=== PATIENT | male | born 1970 | race Caucasian/White ===

== ENCOUNTER 2017-02-20 09:26 | Emergency (ER) | payer OTHER ==
[~2017-02-20] VITALS: Ht 177.8 cm; Wt 93.5 kg
[2017-02-20 09:30] VITALS: Ht 177.8 cm; Wt 93.5 kg
[2017-02-20] MEDS ORDERED: CEPH-443 PO (09:55)
[2017-02-20] MEDS ORDERED: SULF1TAB31 PO (09:55)
[2017-02-20] MEDS ORDERED: CEPHALEXIN 500 MG CAP PO ONE (10:00)
[2017-02-20] MEDS ORDERED: TRIMETHOPRIM/SULFAMETHOX (DS) TAB PO ONE (10:00)
--- NOTE | 2017-02-20 10:01 | ERD ---
ER Documentation Chief Complaint Date/Time DATE: 02/20/17 TIME: 09:58 Chief Complaint redness swelling hot to touch at right elbow for 3 days HPI 46-year-old male presents to the emergency department complaining of right elbow swelling and pain. Patient was in his usual state of health into the last 24 hours at which time he developed an atraumatic swelling and pain of his right elbow. He reports no numbness, tingling, loss of function of the arm. He reports no fevers or chills. ROS All systems reviewed and are negative except as per history of present illness. Medications Home Meds Active Scripts Cephalexin* (Keflex*) 500 Mg Capsule, 500 MG PO QID for 5 Days, CAP Prov:SYDNEE ROJOSON 02/20/17 Sulfamethoxazole/Trimethoprim* (Bactrim Ds* Tablet) 1 Each Tablet, 1 TAB PO BID , #14 TAB Prov:ALIALZU 02/20/17 Allergies Allergies: Coded Allergies: No Known Allergy (Unverified , 02/20/17) PMhx/Soc History of Surgery: Yes (right arm) Anesthesia Reaction: No Hx Neurological Disorder: No Hx Respiratory Disorders: No Hx Cardiac Disorders: No Hx Psychiatric Problems: No Hx Alcohol Use: No Hx Substance Use: No Hx Tobacco Use: No Smoking Status: Never smoker FmHx Noncontributory for chief complaint Physical Exam Vitals Vital Signs Date Time Temp Pulse Resp B/P Pulse Ox O2 Delivery O2 Flow Rate FiO2 02/20/17 09:30 99.5 95 18 130/84 99 Physical Exam General: well developed, well nourished, in no distress. Neuro: Normal speech, gait, balance Extremity: The right elbow, which is the area of concern, has evidence of an old skin graft. There is cellulitis without abscess noted. There is no olecranon bursitis noted. There is no crepitus and the compartments are soft and compressible. Patient is neurovascularly intact distal to the infection. Results 24 hrs Current Medications Medications (Trade) Dose Ordered Sig/Elina Route PRN Reason Start Time Stop Time Status Last Admin Dose Admin Trimethoprim/ Sulfamethoxazole (Bactrim (Ds)) 1 tab ONCE ONCE PO 02/20/17 10:00 02/20/17 10:01 Cephalexin (Keflex) 500 mg ONCE ONCE PO 02/20/17 10:00 02/20/17 10:01 Procedures/MDM Patient was taken to a room, seen and examined Medical decision making: This is a 46-year-old male nondiabetic gentleman who presents the emergency department the cellulitis of a previously damaged right elbow with a skin graft. At this time, patient has no systemic symptoms or evidence of significant high risk infection although given the skin graft, wound complications and healing delay may be anticipated. Patient will be started on antibiotics for coverage of cellulitis and patient has been given clear instructions to return tomorrow for recheck at which time he may need IV antibiotics if he is not improving. Clearly at this time, patient has no evidence of abscess or surgical need for intervention. Departure Diagnosis: Primary Impression: Cellulitis Condition: Stable Patient Instructions: Cellulitis Additional Instructions: Please return here tomorrow for recheck. Return sooner for any fevers LUZ ROJO Feb 20, 2017 10:01
[2017-02-20] MEDS ORDERED: HYDR-906 PO (10:08)
[2017-02-20] MEDS ORDERED: HYDROCODONE/APAP (5/325) TAB PO ONE (10:30)
[2017-02-20 10:46] VITALS: BP 129/78; PULSE 90; RESP 20
== END 2017-02-20 10:47 | disposition home or self-care (01) ==
LOC: E/R 09:26
DX: L03.113 Cellulitis of right upper limb (principal); R40.2252 Coma scale, best verbal response, oriented, at arrival to emergency department
CPT/HCPCS: Z7502; Z7610; 99284

== ENCOUNTER 2017-02-21 08:27 | Inpatient (IN) | payer OTHER ==
[~2017-02-21] VITALS: Ht 170.2 cm; Wt 92.5 kg
[~2017-02-21 08:27] MED LIST: CEPH-443 PO; HYDR-906 PO; SULF1TAB31 PO
[2017-02-21] MEDS ORDERED: ONDANSETRON 4 MG INJ IV STA (09:22)
[2017-02-21] MEDS ORDERED: PIPER-TAZO 3.375 GM IV (PMX) 100 ML IVPB STA (09:22)
[2017-02-21] MEDS ORDERED: morphine 2 MG INJ IV STA (09:22)
[2017-02-21] MEDS ORDERED: SOD CHLORIDE 0.9% 1,000 ML IV STA (09:22)
[2017-02-21] MEDS ORDERED: VANCOMYCIN 1 GM (PMX) 250 ML IVPB STA (09:22)
--- NOTE | 2017-02-21 09:54 | ERD ---
ER Documentation Chief Complaint Date/Time DATE: 02/21/17 TIME: 09:51 Chief Complaint RIGHT ARM SWELLING, SEEN HERE YESTERDAY WITH SAME HPI 46 year old male comes in with right arm swelling, Patient was discharged with Keflex and Bactrim after being seen a diagnosis cellulitis yesterday. 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 Since then he states that the swelling has gotten worse, with more pain. He has not had any fevers or chills. ROS All systems reviewed and are negative except as per history of present illness. Medications Home Meds Discontinued Scripts Hydrocodone/Acetaminophen ([place] 5-325 Tablet) 1 Each Tablet, 1 TAB PO Q6H Y for PAIN, #7 TAB Prov:LUZ ROJO 02/20/17 Cephalexin* (Keflex*) 500 Mg Capsule, 500 MG PO QID for 5 Days, CAP Prov:ALIALUZ 02/20/17 Sulfamethoxazole/Trimethoprim* (Bactrim Ds* Tablet) 1 Each Tablet, 1 TAB PO BID , #14 TAB Prov:LUZ ROJO 02/20/17 Allergies Allergies: Coded Allergies: No Known Allergy (Unverified , 02/20/17) PMhx/Soc Medical and Surgical Hx: pt denies Medical Hx History of Surgery: Yes (right arm) Anesthesia Reaction: No Hx Neurological Disorder: No Hx Respiratory Disorders: No Hx Cardiac Disorders: No Hx Psychiatric Problems: No Hx Alcohol Use: No Hx Substance Use: No Hx Tobacco Use: No Physical Exam Vitals Vital Signs Date Time Temp Pulse Resp B/P Pulse Ox O2 Delivery O2 Flow Rate FiO2 02/21/17 08:29 99.7 90 17 114/69 100 Physical Exam General: Well-developed, well-nourished. The patient appears in no acute distress. HEENT: Head is normocephalic, atraumatic. No scleral icterus. Neck: Supple. Nontender. Lungs: Clear to auscultation. Normal air movement. Heart: Regular rate and rhythm. S1 and S2 are normal. No murmurs, gallops, or rubs. Abdomen: Soft, nontender, nondistended. Bowel sounds are normoactive. Extremities: Cellulitis of the right elbow and proximal arm, there is erythema, swelling there is an abscess to the posterior right elbow. Sensation is distally intact, capillary refill less than 2 seconds. No lymphatic streaking. Neurologic: Alert and oriented 3. No focal deficits. Skin: Normal turgor. No rash or lesions. Result Diagram: 02/22/17 0530 02/22/17 0530 Results 24 hrs Laboratory Tests Test 02/21/17 09:46 White Blood Count 10.510^3/ul Red Blood Count 4.6210^6/ul Hemoglobin 14.0g/dl Hematocrit 39.7% Mean Corpuscular Volume 85.9fl Mean Corpuscular Hemoglobin 30.3pg Mean Corpuscular Hemoglobin Concent 35.3g/dl Red Cell Distribution Width 12.2% Platelet Count 37555^3/UL Mean Platelet Volume 10.7fl Neutrophils % 73.8% Lymphocytes % 15.7% Monocytes % 9.3% Eosinophils % 0.3% Basophils % 0.3% Nucleated Red Blood Cells % 0.0/100WBC Neutrophils # (Manual) 7.810^3/ul Lymphocytes # 1.710^3/ul Monocytes # 1.010^3/ul Eosinophils # 0.010^3/ul Basophils # 0.010^3/ul Nucleated Red Blood Cells # 0.010^3/ul Sodium Level 138mmol/L Potassium Level 3.7mmol/L Chloride Level 105mmol/L Carbon Dioxide Level 22mmol/L Anion Gap 15 Blood Urea Nitrogen 14mg/dl Creatinine 1.00mg/dl Glucose Level 119mg/dl Calcium Level 9.7mg/dl Current Medications Medications (Trade) Dose Ordered Sig/Elina Route PRN Reason Start Time Stop Time Status Last Admin Dose Admin Sodium Chloride (NS) 1,000 ml @ 1,000 mls/hr Q1H STAT IV 02/21/17 09:22 02/21/17 10:21 DC 02/21/17 10:07 Morphine Sulfate (morphine) 2 mg ONCE STAT IV 02/21/17 09:22 02/21/17 09:24 DC Ondansetron HCl 4 mg 4 mg ONCE STAT IV 02/21/17 09:22 02/21/17 09:24 DC Piperacillin Sod/ Tazobactam Sod 100 ml @ 200 mls/hr ONCE STAT IVPB 02/21/17 09:22 02/21/17 09:51 DC 02/21/17 10:07 Vancomycin HCl (Vancocin) 250 ml @ 125 mls/hr ONCE STAT IVPB 02/21/17 09:22 02/21/17 11:21 DC 02/21/17 09:22 Procedures/MDM 38-year-old male comes in with cellulitis, there is an abscess as well and likely due to an abrasion injury with the trash can at the hospital 4 days ago. Patient states that he was taking the antibiotics however does not seem to have any improvement, patient will be admitted for IV antibiotics as his cellulitis has worsened as well as the swelling and pain. The case was reviewed and discussed with Dr. Lau who agrees with the plan of care including labs, treatment, and advanced imaging as appropriate. Departure Diagnosis: Primary Impression: Cellulitis of right arm Condition: Stable ROMINA LAZARO PA-C Feb 21, 2017 09:54
[2017-02-21] MEDS ORDERED: IBUPROFEN 600 MG TAB PO ONE (10:00)
[2017-02-21 10:06] LABS: WHITE BLOOD COUNT 10.5 10^3/ul (4.8-10.8)
[2017-02-21 10:07] LABS: BASOPHILS % 0.3 % (0.0-2.0); EOSINOPHILS % 0.3 % (0.0-7.0); HEMATOCRIT 39.7 % (42.0-52.0); LYMPHOCYTES # 1.7 10^3/ul (0.8-2.9); LYMPHOCYTES % 15.7 % (15.0-51.0); MEAN CORPUSCULAR HEMOGLOBIN 30.3 pg (29.0-33.0); MEAN CORPUSCULAR HGB CONC 35.3 g/dl (32.0-37.0); MEAN CORPUSCULAR VOLUME 85.9 fl (82.0-101.0); MEAN PLATELET VOLUME 10.7 fl (7.4-10.4); MONOCYTES % 9.3 % (0.0-11.0); NEUTROPHILS % 73.8 % (39.0-77.0); PLATELET COUNT 183 10^3/UL (140-415); RED BLOOD COUNT 4.62 10^6/ul (4.70-6.10); RED CELL DISTRIBUTION WIDTH 12.2 % (11.5-14.5)
[2017-02-21 10:24] LABS: CALCIUM 9.7 mg/dl (8.4-10.2); POTASSIUM 3.7 mmol/L (3.5-5.1)
--- NOTE | 2017-02-21 11:03 | RADRPT ---
PROCEDURE: CR Right Elbow CLINICAL INDICATION: Cellulitis with recent trauma TECHNIQUE: 4 views were submitted. COMPARISON: None FINDINGS: Osseous Structures: There is mild deformity to the distal ulnar shaft is seen at the edge of the oumar dy which may be a sequelae of old healed trauma. There is deformity to the lateral capitellum with a small metallic ring in place indicating previous surgery. There is mild solid benign-appearing prince osteal reaction seen along the lateral distal right humeral metaphysis. No acute fracture or osseous destruction is evident. Joint Spaces: The joint spaces are well maintained. No joint effusion is evident. Soft Tissues: There is a faint calcification seen anterior to the base of the right radial head. The re is soft tissue prominence and lobulation dorsal to the ulnar shaft. IMPRESSION: 1. Previous elbow surgery with a metallic ring seen lateral to a and slightly deformed capitellum. 2. Deformity to the distal ulnar shaft seen at the edge of the study possibly a sequelae of old hea led trauma. 3. Benign solid periosteal reaction seen along the lateral distal humeral metaphysis. 4. No acute fracture or osseous destruction is evident. 5. Lobulated increased soft tissue density seen dorsal to the ulnar shaft. Physician Raiza Date Time Electronically viewed and signed by Physician Raiza on 02/21/2017 11:03 /
--- NOTE | 2017-02-21 11:24 | HP ---
Date/Time of Note Date/Time of Note DATE: 02/21/17 TIME: 11:18 Assessment/Plan VTE Prophylaxis VTE Prophylaxis Intervention: SCD's Assessment/Plan Assessment/Plan 46 yo M with no chronic medical conditions here for R extensor elbow wound, concern for cellulitis with possible underlying abscess? -SSTI abx: ancef/vanc -gen surg consult placed for eval for debridement general diet DVT prophx HPI/ROS Admit Date/Time Admit Date/Time Hx of Present Illness CC R elbow wound HPI 46 yo M with pmhx skin grafts to RUE for old injury presents with R arm wound. 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 States the area grew red over the past few days. Presented to the ER here yesterday, was diagnosed with cellulitis and discharged with Rx's for keflex and bactrim. This morning when he awoke the area of inflammation had increased in size and induration and was draining blood and pus which prompted his return the [facility] ER. Denies fevers or chills. 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 Sanguinous discharge with debris easily expressible from this this wound +strong radial pulse. full AROM in RUE XR results reviewed WBCs and Cr wnl Labs Result Diagram: 02/21/1746 02/21/1746 MONALISA BADILLO MD Feb 21, 2017 11:24
[2017-02-21 11:30] VITALS: BP 113/68; PULSE 74; RESP 18; Ht 170.2 cm; Wt 92.5 kg
[2017-02-21] MEDS ORDERED: NACL 0.9% 3 ML SYG IV SCH (11:30)
[2017-02-21] MEDS ORDERED: BISACODYL (EC) 5 MG TAB PO PRN (11:30)
[2017-02-21] MEDS ORDERED: HYDROCODONE/APAP (5/325) TAB PO PRN (11:30)
[2017-02-21] MEDS ORDERED: ACETAMINOPHEN 325 MG TAB PO PRN (11:30)
[2017-02-21] MEDS ORDERED: DOCUSATE SODIUM 100 MG CAP PO PRN (11:30)
[2017-02-21] MEDS ORDERED: MAGNESIUM HYDROXIDE 30ML CUP PO PRN (11:30)
[2017-02-21] MEDS ORDERED: VANCOMYCIN IV PER PHARMACY XX SCH (11:30)
[2017-02-21] MEDS ORDERED: CEFAZOLIN 1 GM INJ IM SCH (11:30)
[2017-02-21] MEDS ORDERED: VANCOMYCIN 750 MG in SOD CHLORIDE 0.9% 150 ML IVPB SCH (14:00)
[2017-02-21 14:09] VITALS: BP 103/64; RESP 18
--- NOTE | 2017-02-21 16:46 | CONS ---
Date/Time of Note Date/Time of Note DATE: 02/21/17 TIME: 16:45 Assessment/Plan Assessment/Plan Additional Assessment/Plan [facility] INPATIENT CONSULTATION NOTE DATE OF SERVICE: 02/21/2017 PLACE OF SERVICE: [facility], sixth floor ASSESSMENT AND PLAN: A very-pleasant 46-year-old gentleman with comorbidity of BMI 31.9 and right elbow surgery with skin grafting approximately 15 years ago presenting with a picture concerning for soft tissue infection with possible involvement of the joint. There may even be evidence for necrotizing fasciitis and this needs to be addressed in the operating room. I communicated with Dr. Vazquez who is the main hospitalist on the case and I expressed my concern that this issue likely needs to be addressed today and not wait since concern for necrotizing fasciitis exists. I also believe that this is best served by our orthopedic colleagues since there may be involvement of the hardware that is very close to the elbow joint itself. Even if the hardware is not involved, we do need orthopedic guidance in terms of depth of debridement and any other issues pertaining to the elbow itself. I also explained to the patient and answered all questions. With above assessment, I've recommended the followin. Please involve orthopedic surgery as soon as possible to evaluate the patient's elbow and with high index of suspicion for necrotizing fasciitis. I do believe that the patient needs operative debridement. Thank you very much for having me involved in the care of this very pleasant patient and wonderful family. If you have any questions, please feel free to contact me at [phone]. Nature of presenting problem: High severity Please note that, given the multiple number of diagnoses or management options, the moderate amount and/or complexity of data needed to be reviewed, and high risk of complications and/or morbidity or mortality, this qualifies as moderate to high complexity type of decision-making. Disclaimer: Inadvertent spelling and grammatical errors are likely due to EHR/ dictation software use and do not reflect on the quality of delivered patient care. Also, please note that the electronic time recorded on this node does not necessarily reflect the actual time of the visit. Updated clinical summary: Very pleasant 46-year-old gentleman with comorbidity of BMI 31.9 and previous surgery on his right elbow approximately 15 years ago, presenting to [facility] through the emergency room with soft tissue infection in the setting of hardware in the joint around the right elbow. Comorbidities: 1. BMI 31.9 2. Right elbow surgery with skin grafting approximately 15 years ago CONSULTATION REQUESTED BY: Chen Vazquez MD HISTORY OF PRESENT ILLNESS: The patient is a very pleasant 46-year-old gentleman with above-mentioned comorbidities whom we were kindly asked to consult regarding management of right elbow infection. 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 The patient re-presented because of increased swelling and pain and overall worsening of his condition. Currently, the patient complains of minor pain. No numbness in his right hand. No significant pain with squeezing his hand into a fist. No other major complaints. ALLERGIES: NO KNOWN DRUG ALLERGIES MEDICATIONS Documented in the electronic records and reviewed by me. Please see the electronic records for details, as well as details for inpatient medications which were also reviewed by me. SOCIAL HISTORY: The patient lives with family. 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 REVIEW OF SYSTEMS: Other than mentioned above, there were no other pertinent positives or pertinent negatives in an otherwise complete 14 point review of systems. PHYSICAL EXAMINATION GENERAL: The patient appears to be a very pleasant gentleman of descent lying in bed, appearing stated age, and otherwise in no acute distress. BMI: 31.9 VITAL SIGNS: AVSS (please also see auto important data if available as well as the electronic records) HEENT: Normocephalic and atraumatic. Extraocular muscles and hearing are grossly intact bilaterally and symmetrically. Sclerae are nonicteric. Oral cavity is clear; oral mucosa appear to be pink and moist. Dentition: fair. NECK: Supple. There is no lymphadenopathy or JVD. There is no submental, submandibular or supraclavicular lymphadenopathy. CHEST: Rises symmetrically with each breath; patient is breathing comfortably. There are no audible wheezes, rales or rhonchi on the gross exam. HEART: Pulse is regular and palpable on the right wrist. Capillary refill is normal. Carotid pulses are palpable bilaterally and symmetrically in the neck. EXTREMITIES: Right upper extremity appears to be swollen around the elbow. There is evidence of prior skin grafting in that region. There is an open area on the skin which has protruding small amount of subcutaneous fat and dishwater fluid can be expressed by squeezing near the area. The right radial pulse is palpable in the right hand. There is no numbness of the right hand digits and the strength appears to be intact. Extension and flexion of the fingers do not elicit significant pain. Lower extremities contain no pitting edema around the ankles bilaterally and symmetrically. ABDOMEN: Abdomen is soft, nontender and nondistended. No evidence of ascites, organomegaly, caput medusae, engorged subcutaneous veins, or other abnormalities. There are no peritoneal signs or guarding. SKIN: Appears to be pink and feels warm to touch. NEUROLOGIC: Awake, alert, and follows commands appropriately. LABORATORY DATA: See below IMAGING: See electronic chart. Please note that I've personally reviewed all pertinent available images and I agree in general with their overall reported findings. Consultation Date/Type/Reason Admit Date/Time Social History Smoking Status: Never smoker Exam/Review of Systems Vital Signs Vitals Vital Signs Date Time Temp Pulse Resp B/P Pulse Ox O2 Delivery O2 Flow Rate FiO2 02/21/17 14:09 98.0 62 18 103/64 96 02/21/17 11:30 Room Air Results Result Diagram: 02/21/17 0946 02/21/17 0946 Results 24 hrs Laboratory Tests Test 02/21/17 09:46 White Blood Count 10.5 Red Blood Count 4.62 L Hemoglobin 14.0 Hematocrit 39.7 L Mean Corpuscular Volume 85.9 Mean Corpuscular Hemoglobin 30.3 Mean Corpuscular Hemoglobin Concent 35.3 Red Cell Distribution Width 12.2 Platelet Count 183 Mean Platelet Volume 10.7 H Neutrophils % 73.8 Lymphocytes % 15.7 Monocytes % 9.3 Eosinophils % 0.3 Basophils % 0.3 Nucleated Red Blood Cells % 0.0 Neutrophils # (Manual) 7.8 H Lymphocytes # 1.7 Monocytes # 1.0 H Eosinophils # 0.0 Basophils # 0.0 Nucleated Red Blood Cells # 0.0 Sodium Level 138 Potassium Level 3.7 Chloride Level 105 Carbon Dioxide Level 22 Anion Gap 15 Blood Urea Nitrogen 14 Creatinine 1.00 Glucose Level 119 Calcium Level 9.7 Medications Medications Current Medications Acetaminophen (Tylenol Tab) 650 mg Q6H PRN PO PAIN LEVEL 1-3 OR FEVER; Start at 11:30 Acetaminophen/ Hydrocodone Bitart ([place] (5/325)) 1 tab Q6H PRN PO MODERATE PAIN LEVEL 4-6; Start 02/21/17 at 11:30 Docusate Sodium (Colace) 100 mg Q12H PRN PO CONSTIPATION; Start 02/21/17 at 11: 30 Magnesium Hydroxide (Milk Of Mag) 30 ml DAILY PRN PO CONSTIPATION; Start at 11:30 Bisacodyl (Dulcolax) 5 mg DAILY PRN PO CONSTIPATION; Start 02/21/17 at 11:30 Enoxaparin Sodium 40 mg 40 mg DAILY SC ; Start 02/22/17 at 09:00 Vancomycin HCl/ Sodium Chloride (Vancocin/NS) 250 ml @ 83.333 mls/ hr Q12H IVPB ; Start 02/22/17 at 02:00 RAMU WALTER M.D. Feb 21, 2017 16:46
[2017-02-21] MEDS: AMPICILLIN/SULB 1.5GM/NS (PMX) 50 ML IVPB SCH (19:31)
[2017-02-21 19:57] VITALS: BP 117/66; RESP 18
[2017-02-22] MEDS: AMPICILLIN/SULB 1.5GM/NS (PMX) 50 ML IVPB SCH ×4 (00:15→17:55)
[2017-02-22 01:54] VITALS: BP 114/66; RESP 18
[2017-02-22] MEDS: VANCOMYCIN 1.25 GM in SOD CHLORIDE 0.9% 250 ML IVPB SCH ×2 (01:56→14:38)
[2017-02-22 06:35] LABS: BASOPHILS % 0.2 % (0.0-2.0); EOSINOPHILS # 0.1 10^3/ul (0.0-0.5); EOSINOPHILS % 1.5 % (0.0-7.0); HEMATOCRIT 38.7 % (42.0-52.0); HEMOGLOBIN 12.7 g/dl (14.0-18.0); LYMPHOCYTES # 1.4 10^3/ul (0.8-2.9); LYMPHOCYTES % 16.7 % (15.0-51.0); MEAN CORPUSCULAR HEMOGLOBIN 29.1 pg (29.0-33.0); MEAN CORPUSCULAR HGB CONC 32.8 g/dl (32.0-37.0); MEAN CORPUSCULAR VOLUME 88.8 fl (82.0-101.0); MEAN PLATELET VOLUME 11.2 fl (7.4-10.4); MONOCYTE # 0.6 10^3/ul (0.3-0.9); MONOCYTES % 7.6 % (0.0-11.0); NEUTROPHILS % 73.4 % (39.0-77.0); PLATELET COUNT 157 10^3/UL (140-415); RED BLOOD COUNT 4.36 10^6/ul (4.70-6.10); RED CELL DISTRIBUTION WIDTH 12.5 % (11.5-14.5); WHITE BLOOD COUNT 8.4 10^3/ul (4.8-10.8)
[2017-02-22 07:19] LABS: CALCIUM 8.8 mg/dl (8.4-10.2); CREATININE 0.94 mg/dl (0.61-1.24); POTASSIUM 4.2 mmol/L (3.5-5.1)
--- NOTE | 2017-02-22 08:04 | PN ---
Date/Time of Note Date/Time of Note DATE: 02/22/17 TIME: 07:58 Assessment/Plan VTE Prophylaxis VTE Prophylaxis Intervention: SCD's Lines/Catheters IV [facility] [place] Assessment/Plan Assessment/Plan 46 yo M with no chronic medical conditions here for R extensor elbow wound, gen surg concern for possible nec fasc. Ortho consulted for debridement. -SSTI abx: ancef/vanc -gen surg consult placed for eval for debridement; ortho consulted per gen surg rec general diet DVT prophx Subjective 24 Hr Interval Summary Free Text/Dictation Elbow more swollen and with increased discharge 745 am: spoke with Dr Cruz he was concerned this patient needs debridement within the next several hours, attempted to reach Dr Gunter. I tried his voicemail but there was no way to leave a message. I then called his exchange and was told he was in surgery. I left a message requesting that he call me back as soon as possible. 12pm spoke with Dr Gunter and relayed the situation. He stated he would see the patient this afternoon Exam/Review of Systems Vital Signs Vitals Vital Signs Date Time Temp Pulse Resp B/P Pulse Ox O2 Delivery O2 Flow Rate FiO2 02/22/17 01:54 98.9 82 18 114/66 98 02/21/17 11:30 Room Air Intake and Output 02/21/17 02/21/17 02/22/17 15:00 23:00 07:00 Intake Total 320 ml 750 ml Balance 320 ml 750 ml Exam nad no mrg lungs clear abd soft inc drainage from elbow and inc swelling Results Result Diagram: 02/22/17 0530 02/22/17 0530 Results 24 hrs Laboratory Tests Test 02/21/17 09:46 02/22/17 05:30 White Blood Count 10.5 8.4 Red Blood Count 4.62 L 4.36 L Hemoglobin 14.0 12.7 L Hematocrit 39.7 L 38.7 L Mean Corpuscular Volume 85.9 88.8 Mean Corpuscular Hemoglobin 30.3 29.1 Mean Corpuscular Hemoglobin Concent 35.3 32.8 Red Cell Distribution Width 12.2 12.5 Platelet Count 183 157 Mean Platelet Volume 10.7 H 11.2 H Neutrophils % 73.8 73.4 Lymphocytes % 15.7 16.7 Monocytes % 9.3 7.6 Eosinophils % 0.3 1.5 Basophils % 0.3 0.2 Nucleated Red Blood Cells % 0.0 0.0 Neutrophils # (Manual) 7.8 H 6.2 Lymphocytes # 1.7 1.4 Monocytes # 1.0 H 0.6 Eosinophils # 0.0 0.1 Basophils # 0.0 0.0 Nucleated Red Blood Cells # 0.0 0.0 Sodium Level 138 140 Potassium Level 3.7 4.2 Chloride Level 105 107 Carbon Dioxide Level 22 27 Anion Gap 15 10 # Blood Urea Nitrogen 14 9 Creatinine 1.00 0.94 Glucose Level 119 110 Calcium Level 9.7 8.8 Hemoglobin A1c 5.1 Medications Medications Current Medications Acetaminophen (Tylenol Tab) 650 mg Q6H PRN PO PAIN LEVEL 1-3 OR FEVER; Start at 11:30 Acetaminophen/ Hydrocodone Bitart ([place] (5/325)) 1 tab Q6H PRN PO MODERATE PAIN LEVEL 4-6; Start 02/21/17 at 11:30 Docusate Sodium (Colace) 100 mg Q12H PRN PO CONSTIPATION; Start 02/21/17 at 11: 30 Magnesium Hydroxide (Milk Of Mag) 30 ml DAILY PRN PO CONSTIPATION; Start at 11:30 Bisacodyl (Dulcolax) 5 mg DAILY PRN PO CONSTIPATION; Start 02/21/17 at 11:30 Enoxaparin Sodium 40 mg 40 mg DAILY SC ; Start 02/22/17 at 09:00 Vancomycin HCl 1.25 gm/Sodium Chloride 250 ml @ 83.333 mls/ hr Q12H IVPB Last administered on 02/22/17 01:56; Admin Dose 83.333 MLS/HR; Start 02/22/17 at 02:00 Ampicillin Sodium/ Sulbactam Sodium (Unasyn 1.5gm/NS (Pmx)) 50 ml @ 100 mls/hr Q6 IVPB Last administered on 02/22/17 05:34; Admin Dose 100 MLS/HR; Start at 18:00 MONALISA BADILLO MD Feb 22, 2017 08:04
[2017-02-22 08:06] VITALS: BP 107/51; RESP 18
[2017-02-22] MEDS: ENOXAPARIN 40 MG/0.4 ML SYG SC SCH (11:22)
[2017-02-22 14:00] VITALS: BP 116/64; RESP 18
--- NOTE | 2017-02-22 16:36 | PN ---
Date/Time of Note Date/Time of Note DATE: 02/22/17 TIME: 16:36 Assessment/Plan Lines/Catheters IV Catheter Type (from Nrsg): Saline Lock Assessment/Plan Assessment/Plan [facility] Progress Note Date of Service: 02/22/2017 Place of service: [facility] 6 floor Today's Assessment & Plan: Overall stable and appears improved. I discussed with Dr. Gunter from orthopedic surgery. I agree that the wound appears to be improved compared to yesterday. Less concerns for necrotizing fasciitis. Due to proximity of the wound and swelling of his elbow joint and presence of foreign object in the area, I am still of opinion that this area and clinical picture is beyond my scope of practice and comfort zone and I believe that it should be addressed and managed by orthopedic surgery. At this point, an MRI of the right upper extremity with specific attention to the area near the elbow joint should be considered. Given above, I will sign off of the case and would leave the clinical decision making in the capable hands of the primary service as well as orthopedic surgery. If further general surgical attention is needed, I suggest that you obtain a second opinion from general surgery to address this issue since I am not comfortable managing this problem. I am certainly available to answer any questions and will be happy to discuss further if needed. Also explained to the patient and nursing staff and answered all questions. With above assessment, I've recommended the following for today: 1. Management per primary service as well as orthopedic surgery 2. Consider MRI of the right upper extremity Thank you again for your great care of this very pleasant patient and wonderful family. If there are any questions, please feel free to call me at [phone]. Thank you very much for having me involved in the care of this very pleasant patient and wonderful family. If you have any questions, please feel free to contact me at [phone]. Nature of presenting problem: High severity Please note that, given the multiple number of diagnoses or management options, the moderate amount and/or complexity of data needed to be reviewed, and high risk of complications and/or morbidity or mortality, this qualifies as moderate to high complexity type of decision-making. Disclaimer: Inadvertent spelling and grammatical errors are likely due to EHR/ dictation software use and do not reflect on the quality of delivered patient care. Also, please note that the electronic time recorded on this node does not necessarily reflect the actual time of the visit. Updated clinical summary: Very pleasant 46-year-old gentleman with comorbidity of BMI 31.9 and previous surgery on his right elbow approximately 15 years ago, presenting to [facility] through the emergency room with soft tissue infection in the setting of hardware in the joint around the right elbow. Comorbidities: 1. BMI 31.9 2. Right elbow surgery with skin grafting approximately 15 years ago Subjective: No major events or complaints; reports overall feeling better without significant symptoms from his right elbow or arm region. No pain in his hands. Objective: Vitals: See below I's & O's: See below Exam: GENERAL: On exam, the patient was lying in bed and appeared to be comfortable and in no acute distress. Right upper extremity dressing taken off and the area of the open skin appears to be healthier without expression of dishwater appearing fluid or edema. No tenderness to palpation in this region. No skin erythema. No numbness or changes in strength of fingers or hand. No forearm compartment tenderness. ABDOMEN: Soft, nontender and nondistended. Incisions are clean, dry and intact without any evidence of erythema, edema, discharge, or hernia. There are no peritoneal signs or guarding. SKIN: Skin appears to be pink and feels warm to touch. NEUROLOGIC: Patient is awake, alert, and follows commands appropriately. Labs: See below Exam/Review of Systems Vital Signs Vitals Vital Signs Date Time Temp Pulse Resp B/P Pulse Ox O2 Delivery O2 Flow Rate FiO2 02/22/17 14:00 98.6 75 18 116/64 99 02/21/17 11:30 Room Air Intake and Output 02/21/17 02/21/17 02/22/17 15:00 23:00 07:00 Intake Total 320 ml 750 ml Balance 320 ml 750 ml Results Result Diagram: 02/22/17 0530 02/22/17 0530 RAMU WALTER M.D. Feb 22, 2017 16:36
--- NOTE | 2017-02-22 19:47 | CONS ---
DATE OF ADMISSION: 02/21/2017 DATE OF CONSULTATION: 02/22/2017 HISTORICAL EVENTS: The patient is an 46-year-old male who was admitted through the emergency room on the February when he came to the emergency room complaining of increasing pain and swelling involving the posterior aspect of his proximal right forearm. About 4 days prior to his admission, sustained a swelling of a previously opened small wound. Because of mild swelling and pain, he came to the emergency room 1 day prior to his admission and was discharged with oral antibiotics; however, because of the increasing pain and swelling, he came back to the emergency room on the day of his admission and was admitted. Pertinent history is that he had sustained a fracture involving his right elbow along with the soft tissue injury involving the posterior aspect of the proximal part of the right forearm about 15 years ago. At that time, he was obviously treated with some type of open reduction around the right elbow, possibly involving capitellum and considerable soft tissue injury; however, the proximal portion of the right forearm. At that time, he was treated with open reduction and internal fixation of the right elbow whose hardware was removed later on, and he was also treated with wound care followed by a skin graft over the posterior aspect of the right forearm. According to the patient, he has been having recurring soft tissue problems over the skin graft site with recurring open wound that has had to be managed ever since. At the time of his fall, he was having a small open wound over the area of skin graft as usual when he fell on it about 4 days prior to his development of the swelling and pain. PHYSICAL EXAMINATION: GENERAL: My examination revealed a 46-year-old male who was not in any acute distress. He was afebrile at the time of admission, or so afebrile at the time of my evaluation 1 day later, and he did not have any leukocytosis at the time of admission with a WBC count of 10.5, an he does not have any leukocytosis at the time of my evaluation, with a WBC count of 8.4. EXTREMITIES: There was a mild swelling over the proximal portion of the left posterior aspect of the right forearm with a small open wound. There was a scab-like structure around the open wound with a little bit of necrotic tissue surrounding the area of open wound. There was a mild swelling around the open wound with mild tenderness. Even though he was holding his right elbow flexed, giving the impression of rigidity with convincing, he was able to carry out the full range of motion of the right elbow. There were no signs of any pyogenic process involving the elbow joint itself, and there were no signs of any effusion involving the elbow joint. There were no signs of ascending lymphangitis in the right upper extremity. There was no obvious neurovascular compromise. DIAGNOSTIC DATA: X-rays of the right elbow did not reveal any signs of effusion of the elbow joint, such as fat pad sign. There was a small metallic material, most probably a washer, which was used at the time of the open reduction and internal fixation of the elbow 15 years ago, which was left at the time of screw removal. There were no abnormal over the area of the soft tissue infection over the proximal portion of the right forearm, posterior to the ulna. DIAGNOSTIC IMPRESSION: 1. Small open infected wound with surrounding cellulitis. 2. Less than satisfactory outcome of skin graft with chronic problems over the posterior aspect of the proximal portion of the right forearm. 3. No signs of any pyogenic process involving the skeletal structures or joint. 4. No signs of necrotizing fasciitis at the time of my evaluation. TREATMENT PLAN: 1. Limited debridement by removing necrotic tissue, and this was done right after my initial evaluation at bedside. It could be done because the patient did not have any pain over the area. 2. Wound care, possibly with the help of wound care nurse. 3. CT scan to make sure that there is no necrotizing fasciitis. 4. Possible involvement of plastic surgery for possible repeat skin graft when the pyogenic process has subsided. Dictated By: In Kayla Gunter MD /[facility] /Document#: [id number]
[2017-02-22 20:50] VITALS: BP 108/63; RESP 18
[2017-02-23] MEDS: AMPICILLIN/SULB 1.5GM/NS (PMX) 50 ML IVPB SCH ×3 (00:14→12:59)
--- NOTE | 2017-02-23 01:40 | RADRPT ---
PROCEDURE: CT right elbow CLINICAL INDICATION: 46 years of age, male. Right elbow wound. Evaluate for necrotizing fasciitis o r deep space infection.. TECHNIQUE: A noncontrast CT of the right elbow was performed. Coronal and sagittal reformatted im ages were obtained from the axial source images. Images were reviewed on a high-resolution PACS work station. CTDIvol: 9.9 mGy. DLP: 213 mGy-cm. One or more of the following dose reduction techniques were used: - Automated exposure control. - Adjustment of the mA and/or kV according to patient size. - Use of iterative reconstruction technique. COMPARISON: None available. FINDINGS: There is edema in the superficial fascia dorsal to the elbow that involves the proximal forearm and to a lesser degree the distal upper arm. The edema is predominantly in the superficial fascia withou t evidence of extension into the deep fascial compartment. Negative for abnormal soft tissue gas. Muscle architecture is normal. There are enlarged epitrochlear lymph nodes with fatty ashish at the ul sarai aspect of the elbow that are likely reactive. Without intravenous contrast, the study does not evaluate the patency of the vasculature and does no t evaluate for microabscesses. The elbow is held in flexion. There is an orthopedic button overlying the posterior aspect of the ca pitellum that may be from prior repair of the lateral ligaments. There is an osteochondral lesion of the posterior capitellum with depression of the articular surface and there are small intra-articul ar loose bodies in the radiocapitellar joint recesses. 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 Alignment of the elbow is anatomic. Negative for an elbow joint effusion. Negative for periosteal reaction or bony destruction to indicate osteomyelitis. IMPRESSION: Soft tissue edema in the superficial fascia at the dorsal aspect of the elbow extending into the for earm and to a lesser degree into the upper arm. Negative for soft tissue gas. Negative for clear wandy dence of involvement of the deep fascial compartment. Negative for periosteal reaction or bony destruction to indicate osteomyelitis. Postoperative changes involving the lateral elbow ligaments. 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 RPTAT: HCTS Claudiay Sadro, Physician Date Time Electronically viewed and signed by Jimmie Guy, Physician on 02/23/2017 01:40 CS/
[2017-02-23 02:53] VITALS: BP 110/61; RESP 18
[2017-02-23] MEDS ORDERED: VANCOMYCIN 1.5 GM in SOD CHLORIDE 0.9% 250 ML IVPB SCH (03:00)
[2017-02-23 07:32] VITALS: BP 100/57; RESP 16
[2017-02-23] MEDS: ENOXAPARIN 40 MG/0.4 ML SYG SC SCH (09:15)
[2017-02-23] MEDS: VANCOMYCIN 1 GM in NS 250 ML IVPB SCH ×2 (10:56→17:34)
--- NOTE | 2017-02-23 13:14 | PN ---
Date/Time of Note Date/Time of Note DATE: 02/23/17 TIME: 13:12 Assessment/Plan VTE Prophylaxis VTE Prophylaxis Intervention: SCD's Lines/Catheters IV Catheter Type (from Nrsg): Saline Lock Assessment/Plan Assessment/Plan 46 yo M with no chronic medical conditions here for R extensor elbow wound with superficial fascitis, sp bedside ortho debridement 9.8 -SSTI abx: narrow abx back to [facility] as per orthopedics -plastics consult given skin graft -wound care cs general diet DVT prophx Subjective 24 Hr Interval Summary Free Text/Dictation Elbow feels and looks better after bedside debridement last night Exam/Review of Systems Vital Signs Vitals Vital Signs Date Time Temp Pulse Resp B/P Pulse Ox O2 Delivery O2 Flow Rate FiO2 02/23/17 07:32 98.6 65 16 100/57 97 02/21/17 11:30 Room Air Intake and Output 02/22/17 02/22/17 02/23/17 15:00 23:00 07:00 Intake Total 50 ml 1700 ml 950 ml Balance 50 ml 1700 ml 950 ml Exam Elbow wound undressed, much less induration, scant drainage on yellow absorbent dressing no mrg lungs clear abd soft no rashes CT last night with: Soft tissue edema in the superficial fascia at the dorsal aspect of the elbow extending into the forearm and to a lesser degree into the upper arm. Negative for soft tissue gas. Negative for clear evidence of involvement of the deep fascial compartment. Results Result Diagram: 02/22/17 0530 02/22/17 0530 Results 24 hrs Laboratory Tests Test 02/23/17 00:57 Vancomycin Level Trough 8.1 L Medications Medications Current Medications Acetaminophen (Tylenol Tab) 650 mg Q6H PRN PO PAIN LEVEL 1-3 OR FEVER; Start at 11:30 Acetaminophen/ Hydrocodone Bitart ([place] (5/325)) 1 tab Q6H PRN PO MODERATE PAIN LEVEL 4-6; Start 02/21/17 at 11:30 Docusate Sodium (Colace) 100 mg Q12H PRN PO CONSTIPATION; Start 02/21/17 at 11: 30 Magnesium Hydroxide (Milk Of Mag) 30 ml DAILY PRN PO CONSTIPATION; Start at 11:30 Bisacodyl (Dulcolax) 5 mg DAILY PRN PO CONSTIPATION; Start 02/21/17 at 11:30 Enoxaparin Sodium 40 mg 40 mg DAILY SC Last administered on 02/23/17 09:15; Admin Dose 40 MG; Start 02/22/17 at 09:00 Ampicillin Sodium/ Sulbactam Sodium 50 ml @ 100 mls/hr Q6 IVPB Last administered on 02/23/17 12:59; Admin Dose 100 MLS/HR; Start 02/21/17 at 18:00 Vancomycin HCl (Vancocin) 250 ml @ 125 mls/hr Q8H IVPB Last administered on 10:56; Admin Dose 125 MLS/HR; Start 02/23/17 at 10:00 Miscellaneous Information (*Rx Drug Level Order Reminder*) VANCOMYCIN TROUGH AT 0900 ONCE ONCE XX ; Start 02/24/17 at 09:00; Stop 02/24/17 at 09:01 MONALISA BADILLO MD Feb 23, 2017 13:14
--- NOTE | 2017-02-23 16:21 | PN ---
Date/Time of Note Date/Time of Note DATE: 02/23/17 TIME: 16:17 Assessment/Plan Lines/Catheters IV Catheter Type (from Nrsg): Saline Lock Assessment/Plan Assessment/Plan [facility] Progress Note Date of Service: 02/23/2017 Place of service: [facility] 6 floor Today's Assessment & Plan: Overall stable and appears improved. No indication for acute surgical intervention from a general surgical standpoint. Patient may d/c home if cleared by Dr. Gunter and primary service. Explained to the patient and nursing staff and answered all questions. With above assessment, I've recommended the following for today: 1. Management per primary service as well as orthopedic surgery Thank you again for your great care of this very pleasant patient and wonderful family. If there are any questions, please feel free to call me at [phone]. Thank you very much for having me involved in the care of this very pleasant patient and wonderful family. If you have any questions, please feel free to contact me at [phone]. Nature of presenting problem: High severity Please note that, given the multiple number of diagnoses or management options, the moderate amount and/or complexity of data needed to be reviewed, and high risk of complications and/or morbidity or mortality, this qualifies as moderate to high complexity type of decision-making. Disclaimer: Inadvertent spelling and grammatical errors are likely due to EHR/ dictation software use and do not reflect on the quality of delivered patient care. Also, please note that the electronic time recorded on this node does not necessarily reflect the actual time of the visit. Updated clinical summary: Very pleasant 46-year-old gentleman with comorbidity of BMI 31.9 and previous surgery on his right elbow approximately 15 years ago, presenting to [facility] through the emergency room with soft tissue infection in the setting of hardware in the joint around the right elbow. Comorbidities: 1. BMI 31.9 2. Right elbow surgery with skin grafting approximately 15 years ago Subjective: No major events or complaints; reports overall feeling better without significant symptoms from his right elbow or arm region. No pain in his hands. Objective: Vitals: See below I's & O's: See below Exam: GENERAL: On exam, the patient was lying in bed and appeared to be comfortable and in no acute distress. Right upper extremity dressing clean. No tenderness to palpation in this region. No skin erythema. No numbness or changes in strength of fingers or hand. No forearm compartment tenderness. ABDOMEN: Soft, nontender and nondistended. Incisions are clean, dry and intact without any evidence of erythema, edema, discharge, or hernia. There are no peritoneal signs or guarding. SKIN: Skin appears to be pink and feels warm to touch. NEUROLOGIC: Patient is awake, alert, and follows commands appropriately. Labs: See below Exam/Review of Systems Vital Signs Vitals Vital Signs Date Time Temp Pulse Resp B/P Pulse Ox O2 Delivery O2 Flow Rate FiO2 02/23/17 07:32 98.6 65 16 100/57 97 02/21/17 11:30 Room Air Intake and Output 02/22/17 02/22/17 02/23/17 15:00 23:00 07:00 Intake Total 50 ml 1700 ml 950 ml Balance 50 ml 1700 ml 950 ml Results Result Diagram: 02/22/17 0530 02/22/17 0530 RAMU WALTER M.D. Feb 23, 2017 16:21
[2017-02-23 20:00] VITALS: BP 121/68; RESP 18
[2017-02-24] MEDS: VANCOMYCIN 1 GM in NS 250 ML IVPB SCH ×2 (01:35→11:51)
[2017-02-24 01:58] VITALS: BP 105/63; RESP 18
[2017-02-24 05:53] LABS: BASOPHILS % 0.4 % (0.0-2.0); EOSINOPHILS # 0.2 10^3/ul (0.0-0.5); EOSINOPHILS % 3.5 % (0.0-7.0); HEMOGLOBIN 13.1 g/dl (14.0-18.0); LYMPHOCYTES # 1.5 10^3/ul (0.8-2.9); MEAN CORPUSCULAR HEMOGLOBIN 29.4 pg (29.0-33.0); MEAN CORPUSCULAR HGB CONC 33.6 g/dl (32.0-37.0); MEAN CORPUSCULAR VOLUME 87.6 fl (82.0-101.0); MEAN PLATELET VOLUME 10.9 fl (7.4-10.4); MONOCYTE # 0.4 10^3/ul (0.3-0.9); MONOCYTES % 7.7 % (0.0-11.0); NEUTROPHILS % 60.5 % (39.0-77.0); PLATELET COUNT 189 10^3/UL (140-415); RED BLOOD COUNT 4.45 10^6/ul (4.70-6.10); RED CELL DISTRIBUTION WIDTH 12.2 % (11.5-14.5); WHITE BLOOD COUNT 5.5 10^3/ul (4.8-10.8)
[2017-02-24 06:31] LABS: CALCIUM 9.4 mg/dl (8.4-10.2); CREATININE 0.86 mg/dl (0.61-1.24)
[2017-02-24 07:59] VITALS: BP 99/96; RESP 18
[2017-02-24] MEDS: ENOXAPARIN 40 MG/0.4 ML SYG SC SCH (09:01)
--- NOTE | 2017-02-24 11:03 | PN ---
Date/Time of Note Date/Time of Note DATE: 02/24/17 TIME: 11:02 Assessment/Plan Lines/Catheters IV Catheter Type (from Nrsg): Saline Lock Assessment/Plan Assessment/Plan [facility] Progress Note Date of Service: 02/24/2017 Place of service: [facility] 6 floor Today's Assessment & Plan: Overall stable and appears improved. No indication for acute surgical intervention from a general surgical standpoint. Patient may d/c home if cleared by Dr. Gunter and primary service. Explained to the patient and answered all questions. With above assessment, I've recommended the following for today: 1. Management per primary service as well as orthopedic surgery 2. F/u with PCP as an outpatient Thank you again for your great care of this very pleasant patient and wonderful family. If there are any questions, please feel free to call me at [phone]. Thank you very much for having me involved in the care of this very pleasant patient and wonderful family. If you have any questions, please feel free to contact me at [phone]. Nature of presenting problem: High severity Please note that, given the multiple number of diagnoses or management options, the moderate amount and/or complexity of data needed to be reviewed, and high risk of complications and/or morbidity or mortality, this qualifies as moderate to high complexity type of decision-making. Disclaimer: Inadvertent spelling and grammatical errors are likely due to EHR/ dictation software use and do not reflect on the quality of delivered patient care. Also, please note that the electronic time recorded on this node does not necessarily reflect the actual time of the visit. Updated clinical summary: Very pleasant 46-year-old gentleman with comorbidity of BMI 31.9 and previous surgery on his right elbow approximately 15 years ago, presenting to [facility] through the emergency room with soft tissue infection in the setting of hardware in the joint around the right elbow. Comorbidities: 1. BMI 31.9 2. Right elbow surgery with skin grafting approximately 15 years ago Subjective: No major events or complaints; reports overall feeling better without significant symptoms from his right elbow or arm region. No pain in his hands. Objective: Vitals: See below I's & O's: See below Exam: GENERAL: On exam, the patient was sitting in a chair and appeared to be comfortable and in no acute distress. Right upper extremity dressing clean. Slight skin ulceration clean without discharge with expression of the region. No tenderness to palpation in this region. No skin erythema. No numbness or changes in strength of fingers or hand. No forearm compartment tenderness. ABDOMEN: Soft, nontender and nondistended. Incisions are clean, dry and intact without any evidence of erythema, edema, discharge, or hernia. There are no peritoneal signs or guarding. SKIN: Skin appears to be pink and feels warm to touch. NEUROLOGIC: Patient is awake, alert, and follows commands appropriately. Labs: See below Exam/Review of Systems Vital Signs Vitals Vital Signs Date Time Temp Pulse Resp B/P Pulse Ox O2 Delivery O2 Flow Rate FiO2 02/24/17 07:59 97.9 68 18 99/96 97 02/21/17 11:30 Room Air Intake and Output 02/23/17 02/23/17 02/24/17 15:00 23:00 07:00 Intake Total 300 ml 1710 ml 890 ml Balance 300 ml 1710 ml 890 ml Results Result Diagram: 02/24/17 0505 02/24/17 0505 RAMU WALTER M.D. Feb 24, 2017 11:03
[2017-02-24] MEDS ORDERED: DOXY-220 PO (11:37)
--- NOTE | 2017-02-24 11:41 | PDOCDIS ---
Discharge Instructions CONDITION Patient Condition: Stable HOME CARE INSTRUCTIONS: Special Diet: regular FOLLOW UP/APPOINTMENTS Follow-up Plan Follow up with the orthopedic doctor, Dr Gunter within 7 days [address] con el Dr[address] Lyric brooks dentro de [address] In Kayla Gunter Office Address [address] [place] [address] [place], [place] [id number] Office Utilice la informacin que el administrador de casos le maryanne para establecer [place] consulta con un cirujano plstico Use the information the director of casework services gave you to set up a consultation with a plastic surgeon OTHER ORDERS: Other Orders: Follow the wound care instructions provided by the nurse Siga las instrucciones de cuidado de heridas proporcionadas por la enfermera MONALISA BADILLO MD Feb 24, 2017 11:41
--- NOTE | 2017-02-24 11:49 | DS ---
Date/Time of Note Date/Time of Note DATE: 02/24/17 TIME: 11:45 Discharge Summary Admission/Discharge Info Admit Date/Time Feb 21, 2017 at 09:48 Discharge Date/Time Discharge Diagnosis wound infection of R elbow Patient Condition: Stable Consults general surgery, orthopedic surgery Procedures bedside debridement of R elbow wound 9.8 by orthopedic surgery Hx of Present Illness CC R elbow wound HPI 46 yo M with pmhx skin grafts to RUE for old injury presents with R arm wound. 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 States the area grew red over the past few days. Presented to the ER here yesterday, was diagnosed with cellulitis and discharged with Rx's for keflex and bactrim. This morning when he awoke the area of inflammation had increased in size and induration and was draining blood and pus which prompted his return the [facility] ER. Denies fevers or chills. Hospital Course 46 yo M with no chronic medical conditions here for R extensor elbow wound with surrounding, sp bedside ortho debridement 9.8 with significant improvement in wound related comfort and appearance. Given pt has been having issues with skin graft since it was constructed, a referral was made for plastic surgery evaluation in the outpatient setting. Pt discharged on PO doxy and with referral for wound care. He will also f/u with the orthopedic surgeon who did his debridement this week. Home Meds Active Scripts Doxycycline Monohydrate* (Doxycycline Monohydrate*) 100 Mg Tablet, 100 MG PO BID for 5 Days, #10 TAB Prov:MONALISA BADILLO MD 02/24/17 Discontinued Scripts Hydrocodone/Acetaminophen ([place] 5-325 Tablet) 1 Each Tablet, 1 TAB PO Q6H Y for PAIN, #7 TAB Prov:LUZ ROJO 02/20/17 Cephalexin* (Keflex*) 500 Mg Capsule, 500 MG PO QID for 5 Days, CAP Prov:LUZ ROJO 02/20/17 Sulfamethoxazole/Trimethoprim* (Bactrim Ds* Tablet) 1 Each Tablet, 1 TAB PO BID , #14 TAB Prov:LUZ ROJO 02/20/17 Follow-up Plan ortho within 7 days plastics within 2-4 weeks Primary Care Provider Conrado Vargas Time spent on discharge: > 30 minutes Pending Labs Laboratory Tests Test 02/24/17 05:05 02/24/17 09:23 White Blood Count 5.510^3/ul (4.8-10.8) Red Blood Count 4.4510^6/ul (4.70-6.10) Hemoglobin 13.1g/dl (14.0-18.0) Hematocrit 39.0% (42.0-52.0) Mean Corpuscular Volume 87.6fl (82.0-101.0) Mean Corpuscular Hemoglobin 29.4pg (29.0-33.0) Mean Corpuscular Hemoglobin Concent 33.6g/dl (32.0-37.0) Red Cell Distribution Width 12.2% (11.5-14.5) Platelet Count 61320^3/UL (140-415) Mean Platelet Volume 10.9fl (7.4-10.4) Neutrophils % 60.5% (39.0-77.0) Lymphocytes % 27.0% (15.0-51.0) Monocytes % 7.7% (0.0-11.0) Eosinophils % 3.5% (0.0-7.0) Basophils % 0.4% (0.0-2.0) Nucleated Red Blood Cells % 0.0/100WBC (0.0-0.0) Neutrophils # (Manual) 3.310^3/ul (1.7-7.5) Lymphocytes # 1.510^3/ul (0.8-2.9) Monocytes # 0.410^3/ul (0.3-0.9) Eosinophils # 0.210^3/ul (0.0-0.5) Basophils # 0.010^3/ul (0.0-0.1) Nucleated Red Blood Cells # 0.010^3/ul (0.0-0.0) Sodium Level 139mmol/L (135-144) Potassium Level 4.0mmol/L (3.5-5.1) Chloride Level 106mmol/L (97-110) Carbon Dioxide Level 25mmol/L (21-31) Anion Gap 12 (8-16) Blood Urea Nitrogen 12mg/dl (7-20) Creatinine 0.86mg/dl (0.61-1.24) Glucose Level 109mg/dl (70-220) Calcium Level 9.4mg/dl (8.4-10.2) Vancomycin Level Trough 12.6ug/ml (10.0-20.0) Copies To: CC: DEANNE NOLAN MD, ELLEN MD Feb 24, 2017 11:49
[2017-02-24 14:10] VITALS: BP 104/65; RESP 18
== END 2017-02-24 16:00 | disposition home health service (06) | DRG 603 ==
LOC: FTE 08:27 → MS2 09:48
PROVIDERS: ADMIT Internal Medicine; ATTEND Internal Medicine
DX: L03.113 Cellulitis of right upper limb (principal); T81.4XXS Infection following a procedure, sequela; Y84.8 Other medical procedures as the cause of abnormal reaction of the patient, or of later complication, without mention of misadventure at the time of the procedure
CPT/HCPCS: 36415; 73200; 80048; 80202; 83036; 85025; 87040; 96374; 96375; J0295; J1650; J2270; J2405; J2543; J3370; J7030; J7050

== ENCOUNTER 2018-01-16 06:38 | Day surgery (SDC) | END 2018-01-16 12:16 | disposition home or self-care (01) ==

== ENCOUNTER 2018-10-02 22:31 | Emergency (ER) | payer SELFPAY ==
[~2018-10-02] VITALS: Ht 170.2 cm; Wt 92.7 kg
[~2018-10-02 22:31] MED LIST changes: -CEPH-443 PO; -HYDR-906 PO; +OMEP20CA16 PO; -SULF1TAB31 PO
[2018-10-02 22:35] VITALS: Ht 170.2 cm; Wt 92.7 kg
--- NOTE | 2018-10-03 02:32 | ERD ---
ER Documentation Chief Complaint Chief Complaint R elbow pain/swelling/erythema today only HPI This is a 48-year-old male presents to emerge department with complaints of right elbow pain and swelling with redness. Patient stated that this wound has been going on and off for years and was treated with antibiotics. Stated that he has this for years already but the swelling and warmth around the wound started today. Denies headache, head injury, loss of consciousness, dizziness, neck pain, neck stiffness, throat pain, difficulty swallowing, difficulty breathing lying flat, shoulder pain, chest pain, back pain, abdominal pain, nausea, vomiting, constipation, diarrhea, urinary symptoms, loss of bowel and bladder control, trauma, injury, falls, difficulty walking due to pain, numbness or tingling sensation, calf pain, recent travel, recent major surgery in the last 3 weeks, calf pain, recent long travel, recent exposure to any illness, recent antibiotic use in the last 3 months, fever, chills, seizures. Past medical history: Surgical history: Social: Denies smoking, use of alcoholic beverages, use of illegal drugs. ROS All systems reviewed and are negative except as per history of present illness. Medications Home Meds Active Scripts Ibuprofen* (Motrin*) 800 Mg Tab, 800 MG PO Q6H PRN for PAIN AND OR ELEVATED TEMP, #30 TAB Prov:NORRISILAMYRANDALORETO F 10/03/18 Sulfamethoxazole/Trimethoprim* (Bactrim Ds* Tablet) 1 Each Tablet, 1 TAB PO BID for 7 Days, #14 TAB Prov:NORRISILAMYRANDARICARDORENÉE F 10/03/18 Cephalexin* (Keflex*) 500 Mg Capsule, 500 MG PO TID for 7 Days, CAP Prov:PASILABAN,RICARDOAR F 10/03/18 Reported Medications Omeprazole* (Omeprazole*) 20 Mg Capsule.dr, 20 MG PO DAILY, #30 CAP 01/16/18 Allergies Allergies: Coded Allergies: No Known Allergy (Unverified , 01/16/18) PMhx/Soc History of Surgery: Yes (RRIGHT ELBOW SX WITH PINS) Anesthesia Reaction: No Hx Neurological Disorder: No Hx Respiratory Disorders: No Hx Cardiac Disorders: No Hx Psychiatric Problems: No Hx Miscellaneous Medical Probl: No Hx Alcohol Use: No Hx Substance Use: No Hx Tobacco Use: No Smoking Status: Never smoker Physical Exam Vitals Vital Signs Date Temp Pulse Resp B/P (MAP) Pulse Ox O2 O2 Flow FiO2 Time Delivery Rate 10/03/18 97.8 74 17 116/81 99 Room Air 04:30 (93) 10/02/18 97.3 96 18 130/67 99 22:35 (88) Physical Exam Const: No acute distress Head: Atraumatic Eyes: Normal Conjunctiva ENT: Normal External Ears, Nose and Mouth. Neck: Full range of motion. No meningismus. Resp: Clear to auscultation bilaterally Cardio: Regular rate and rhythm, no murmurs Abd: Soft, non tender, non distended. Normal bowel sounds Skin: No petechiae or rashes. Right forearm: Proximal area has a swelling with redness that is measuring approximately 6 cm in diameter. There is noted an old wound proximally measuring approximately 0.3 cm in diameter (patient stated that this wound has been going on and off for years and was treated with antibiotics). Has a dried yellowish discharge light. Right elbow has no swelling/deformity/redness/discoloration/tenderness and has good and full range of motion. Right humerus is unremarkable. Right shoulder is unremarkable. Right radial pulse is within normal limits. Has good and full function of his right hand. Capillary refills to right upper extremities are less than 2 seconds. Left upper extremity are less than 2 seconds. Very low suspicion for tendon injury/septic joint. No neurovascular deficit. Back: No midline or flank tenderness Ext: No cyanosis, or edema Neur: Awake and alert. No neurovascular deficits. Psych: Normal Mood and Affect Results 24 hrs Current Medications Medications Dose Sig/Elina Start Time Status Last (Trade) Ordered Route PRN Stop Time Admin Dose Reason Admin Ceftriaxone 1 gm ONCE ONCE 10/03/18 DC 10/03/18 Sodium IM 04:00 04:12 (Rocephin) 10/03/18 04:01 1 tab ONCE ONCE 10/03/18 DC Acetaminophen PO 04:00 / 10/03/18 04:01 Hydrocodone Bitart ([place] ()) Procedures/MDM This case was discussed with my supervising physician, Dr. Azael Ocasio, who agreed with my medical decision making. Diagnostic tests: X-ray of the right elbow: Minor degenerative changes, otherwise no acute findings. X-ray of the right forearm: Unremarkable right forearm exam. Wound culture: Sent. Treatment: Ceftriaxone IM. [place]. Re-evaluation: Right radial pulses within normal limits. No neurovascular deficit. Has good and full function of his right hand. Right elbow is good and full range of motion. Afebrile. Very low suspicion for tendon injury. Very low suspicion for septic joint. Differential diagnosis I have low suspicion for necrotizing fasciitis, septic joint, sepsis, deep space infection, tendon injury, osteomyelitis, gangrenous ulcer. Final diagnosis: Cellulitis. Prescription: Keflex. Bactrim. Motrin. Follow-up with PCP in the next 24-48 hours. Come back if redness crosses the marked line. Come back here in the emergency department for any new symptoms or any worsening symptoms. All questions and concerns were answered. Patient and family members verbalized understanding and agreed with plan of care. Hemodynamically stable on discharge. Departure Diagnosis: Primary Impression: Cellulitis Condition: Stable Additional Instructions: Follow-up with PCP in the next 24-48 hours. Come back if redness crosses the marked line. Come back here in the emergency department for any new symptoms or any worsening symptoms. LORETO VALDEZ Oct 03, 2018 02:32
[2018-10-03] MEDS ORDERED: CEPH-443 PO (03:54)
[2018-10-03] MEDS ORDERED: SULF1TAB31 PO (03:54)
[2018-10-03] MEDS ORDERED: IBUP800T48 PO (03:54)
[2018-10-03] MEDS ORDERED: HYDROCODONE/APAP (10/325) TAB PO ONE (04:00)
[2018-10-03] MEDS ORDERED: CEFTRIAXONE 1 GM INJ IM ONE (04:00)
[2018-10-03 04:30] VITALS: BP 116/81; PULSE 74; RESP 17
== END 2018-10-03 04:30 | disposition home or self-care (01) ==
LOC: FTE 22:31
DX: L03.113 Cellulitis of right upper limb (principal)
CPT/HCPCS: 73080; 73090; 87070; 96372; 99284; J0696